=== PATIENT | female | born 1995 | race Caucasian/White ===

== ENCOUNTER → 2023-06-15 | Outpatient (CLI) | payer BC ==
--- NOTE | 2023-06-15 18:22 | Diagnostic Imaging Report ---
PROCEDURE: Pelvic comp/transvaginal sonogram. TECHNIQUE: Complete transabdominal and transvaginal pelvic ultrasound was performed. In addition, limited pelvic Doppler was performed. INDICATION: Painful menses. FINDINGS: Uterus is anteverted measuring 6.3 x 3.5 x 3.1 cm. Endometrium is 4 mm in thickness. No myometrial mass is identified. Right ovary measures 4.3 x 3.2 x 2.7 cm and left ovary measures 3.5 x 3.7 x 2.2 cm. Ovaries contain small follicles. There is blood flow to the ovaries. No adnexal mass or free pelvic fluid is detected. IMPRESSION: Unremarkable transabdominal and transvaginal pelvic ultrasound with limited pelvic Doppler. Dictated by: Dictated on workstation # [id number]
== END ==
LOC: RAD 14:58
PROVIDERS: ATTEND Nurse Practitioner Women's Health
DX: N91.5 Oligomenorrhea, unspecified (principal)
CPT/HCPCS: 76830; 76856